=== PATIENT | male | born 1980 | race Caucasian/White ===

== ENCOUNTER 2017-12-21 20:25 | Emergency (ER) | payer OTHER ==
[~2017-12-21] VITALS: Ht 193 cm; Wt 99.8 kg
[2017-12-21] MEDS ORDERED: NAPROXEN500 MG (20:30)
[2017-12-21] MEDS ORDERED: CLINDAMYCIN HC300 MG (20:31)
== END 2017-12-22 01:10 | disposition home or self-care (01) ==
LOC: ER 20:25
DX: L02.01 Cutaneous abscess of face (principal)